=== PATIENT | male | born 1985 | race Caucasian/White ===

== ENCOUNTER 2016-08-15 12:01 | Emergency (ER) | payer SELFPAY ==
[2016-08-15 12:23] VITALS: BP 139/88; PULSE 103; TEMP 98.3; BMI 27.2
[2016-08-15] MEDS ORDERED: OXYCODONE HCL 5 MG TABLET PO ONE (14:36)
[2016-08-15] MEDS ORDERED: PREDNISONE 20 MG TAB PO ONE (14:36)
[2016-08-15] MEDS ORDERED: DIAZEPAM 5 MG TAB PO ONE (14:36)
--- NOTE | 2016-08-15 14:40 | EDPRACDOC ---
- General Information Chief Complaint: Back Pain Stated Complaint: BACK PAIN Time Seen by Provider: 08/15/16 14:32 Information Source: Patient Mode Of Arrival: Car Home Medications: Home Medications Diazepam [Valium] 5 mg PO TID #15 tablet 08/15/16 Oxycodone Immediate Release [Oxycodone Immediate Release (OxyIR)] 5 mg PO Q6H PRN #20 tab 08/15/16 Prednisone [Deltasone, Orasone] 20 mg PO BID #12 tab 08/15/16 Allergies/Adverse Reactions: Allergies Allergy/AdvReac Type Severity Reaction Status Date / Time cephalexin monohydrate Allergy Intermediate Unknown/See Verified 08/15/16 12:23 [From Keflex] Comments - History of Present Illness Onset: 2 DAYS HPI: PT PRESENTS WITH LOWER LUMBAR PAIN THAT RADIATES TO HIS RIGHT BUTTOCK. DENIES LOSS OF BOWEL OR BLADDER. PT STATES HE WAS MOVING [place] LAST WEEK AND THE PAIN HAS WORSENED SINCE THAT TIME Pain Location: Reports: Lumbar Pain Radiates To: Reports: Buttock Pain Caused By: Reports: Lifting Circumstances: Reports: Unknown Pain Severity: Reports: Moderate Pain Quality: Reports: Aching, Sharp, Stabbing Worsened By: Reports: Breathing, Movement, Twisting, Walking Associated Signs and Symptoms: Reports: None ED Past Medical History - History Reviewed Yes Nurses notes reviewed and agree except as marked EDM Review of Systems - Review of Systems ROS Negative Except as Marked: Yes All systems reviewed and were negative except as marked - Physical Exam Constitutional: Alert (PT APPEARS UNCOMFORTABLE) Oriented to: Time, Person, Place Last recorded Vital Signs: Last Vital Signs Temp 98.3 F 08/15/16 12:23 Pulse 103 08/15/16 12:23 Resp 20 08/15/16 12:23 BP 139/88 08/15/16 12:23 Pulse Ox 95 08/15/16 12:23 Oxygen Pulse Oxygen Saturation 95 O2 Device Oxygen Flow Rate Fraction of Inspired Oxygen ( FIO2) - HEENT Head: Normal ( normocephalic) Eye Exam: Normal (PERRL, EOMI, Sclera white) Oropharynx: Normal (Pharynx:Moist without exudate,Gums-no swelling) Nose: No Symptoms Reported (septum midline) Neck: Normal (FROM, trachea at midline) - Respiratory/Cardiovascular Respiratory: Normal - CTA (BBS clear to auscultation without adventitious sounds ) Cardiovascular: Tachycardia - GI Auscultation: Normal (NABS) Palpation: Normal (Soft,No rebound or guarding, non distended) Tenderness: Non tender Garcia's Sign: Negative Rectal Exam: Deferred - Musculoskeletal Back: Normal (Non-Tender) Extremities: Normal (Normal tone, Pulses 2+ No cyanosis or edema, FROM) - Integumentary Skin: Normal, Warm, Dry Lymphatics: Normal (no adenopathy) - Neurologic Memory Impaired: Normal Motor Function: Normal (Normal tone, Pulses 2+ No cyanosis or edema, FROM) Cranial Nerve: Normal (CN II-X11 intact sensation, strength 5/5) Cerebellar: Normal Mood Description: Normal Perception: Normal ED Back Exam - Neurologic Motor Deficit: None Reflexes: Normal - Musculoskeletal Cervical: Normal Thoracic: Normal Lumbar: Tender, CVA Tenderness Midline: Normal Paraspinous: Tender Straight Leg Raise: Positive Pelvis: Normal - Differential Diagnosis Musculoskeletal pain - Departure Disposition: Home Condition: Stable Final Diagnosis: Acute low back pain Instructions: Acute Low Back Pain (ED), Back Exercises (ED) Education/Counseling Given To: Patient Education/Counseling Given Regarding: Diagnosis, Treatment, Prognosis, Follow Up Referrals: Ran Mayes II, MD [Staff Physician] - One Week Prescriptions: Diazepam [Valium] 5 mg PO TID #15 tablet Oxycodone Immediate Release [Oxycodone Immediate Release (OxyIR)] 5 mg PO Q6H PRN #20 tab PRN Reason: Pain Prednisone [Deltasone, Orasone] 20 mg PO BID #12 tab Additional Instructions: ICE OR HEAT TO THE AREA. FOLLOW UP WITH PCP NEXT WEEK
--- NOTE | 2016-08-15 14:47 | DIRPT ---
CLINICAL DATA: Lumbar spine pain after lifting objects 3 days ago, more on the right side, no radiation into lower extremities EXAM: LUMBAR SPINE - COMPLETE 4+ VIEW COMPARISON: None. FINDINGS: There is no evidence of lumbar spine fracture. Alignment is normal. Intervertebral disc spaces are maintained. IMPRESSION: Negative. Electronically Signed By: Sunil Dooley M.D. On: 08/15/2016 14:44
== END 2016-08-15 15:03 | disposition home or self-care (01) ==
LOC: EDMC 12:01
DX: M54.5 Low back pain (principal)
CPT/HCPCS: 72110; 99282; J3490